=== PATIENT | male | born 1975 | race Caucasian/White ===

== ENCOUNTER 2018-07-07 10:36 | Emergency (ER) | payer OTHER ==
[~2018-07-07] VITALS: Ht 175.3 cm; Wt 67.1 kg
[~2018-07-07 10:36] MED LIST: ALEVE220 MG PO; AMOXICILLIN 50500 MG; AMOXICILLIN500 M1 PO; ANAPROX DS550 MG PO; AUGMENTIN 875-1 EACH PO; CLEOCIN HCL150 MG PO; CLEOCIN HCL300 MG PO; CLINDAMYCIN HC150 MG PO; CYMBALTA20 MG PO; FLEXERIL PO; HYDROCODON-ACE1 EAC7 PO; HYDROCODONE-AP1 EAC6 PO; IBUPROFEN 200200 M1; IBUPROFEN200 M2 PO; KEFLEX500 MG PO; LORTAB 7.5/5001 TA1 PO; MOBIC15 MG PO; MOBIC7.5 M1 PO; NAPROSYN500 MG PO; NOHOMEMEDICATIONS; NORCO 5-325 TA1 EACH PO; NORCO 7.5-3251 EACH PO; PENICILLIN VK500 M1 PO; PENICILLIN VK500 MG PO
[2018-07-07] MEDS ORDERED: MUPIROCIN1 GM NASAL (10:57)
[2018-07-07] MEDS ORDERED: POLYMYXIN B/TMP10 ML OPHTHALMIC (10:57)
[2018-07-07 11:08] VITALS: BP 127/86
== END 2018-07-07 11:10 | disposition home or self-care (01) ==
LOC: M.ERS 10:36
DX: J32.9 Chronic sinusitis, unspecified (principal); H10.32 Unspecified acute conjunctivitis, left eye; F17.200 Nicotine dependence, unspecified, uncomplicated; Z88.5 Allergy status to narcotic agent; Z88.6 Allergy status to analgesic agent; Z88.0 Allergy status to penicillin; Z88.1 Allergy status to other antibiotic agents

== ENCOUNTER 2019-02-22 05:08 | Emergency (ER) | payer OTHER ==
[~2019-02-22] VITALS: Ht 175.3 cm; Wt 63.5 kg
[~2019-02-22 05:08] MED LIST changes: +MUPIROCIN1 GM NASAL; +POLYMYXIN B/TMP10 ML OPHTHALMIC
[2019-02-22] MEDS ORDERED: IBUPROFEN 800800 MG PO (05:39)
[2019-02-22] MEDS ORDERED: BACTRIM DS TAB1 EACH PO (05:39)
[2019-02-22] MEDS ORDERED: HYDROCODON-ACE1 EAC7 PO (06:02)
[2019-02-22 06:18] VITALS: BP 131/88
== END 2019-02-22 06:18 | disposition home or self-care (01) ==
LOC: M.ERS 05:08
DX: S60.352A Superficial foreign body of left thumb, initial encounter (principal); L08.9 Local infection of the skin and subcutaneous tissue, unspecified; F17.210 Nicotine dependence, cigarettes, uncomplicated; Z88.0 Allergy status to penicillin; Z88.1 Allergy status to other antibiotic agents; Z88.6 Allergy status to analgesic agent; Z88.5 Allergy status to narcotic agent; X58.XXXA Exposure to other specified factors, initial encounter; Y93.89 Activity, other specified; Y92.89 Other specified places as the place of occurrence of the external cause; Y99.8 Other external cause status

== ENCOUNTER 2019-03-29 20:46 | Emergency (ER) | payer OTHER ==
[~2019-03-29] VITALS: Ht 175.3 cm; Wt 63.5 kg
[~2019-03-29 20:46] MED LIST changes: +BACTRIM DS TAB1 EACH PO; +IBUPROFEN 800800 MG PO
[2019-03-29] MEDS ORDERED: BACTRIM DS TAB1 EAC1 PO (22:00)
[2019-03-29] MEDS ORDERED: NORCO 5-325 TA1 EAC1 PO (22:00)
[2019-03-29] MEDS ORDERED: KEFLEX500 M1 PO (22:00)
[2019-03-29 22:35] VITALS: BP 123/81
== END 2019-03-29 22:35 | disposition home or self-care (01) ==
LOC: M.ERS 20:46
DX: L03.113 Cellulitis of right upper limb (principal); F17.210 Nicotine dependence, cigarettes, uncomplicated; Z88.0 Allergy status to penicillin; Z88.1 Allergy status to other antibiotic agents; Z88.5 Allergy status to narcotic agent

== ENCOUNTER 2020-09-25 10:10 | Emergency (ER) | payer OTHER ==
[~2020-09-25] VITALS: Ht 175.3 cm; Wt 61.2 kg
[~2020-09-25 10:10] MED LIST changes: +BACTRIM DS TAB1 EAC1 PO; +KEFLEX500 M1 PO; +NORCO 5-325 TA1 EAC1 PO
[2020-09-25] MEDS ORDERED: LIDOCAINE VISC100 ML SWISH&SPIT (10:41)
[2020-09-25] MEDS ORDERED: APAP W/CODEINE1 TA2 PO (10:41)
[2020-09-25] MEDS ORDERED: CEPHALEXIN500 MG PO (10:41)
[2020-09-25 10:51] VITALS: BP 151/97
== END 2020-09-25 10:51 | disposition home or self-care (01) ==
LOC: M.ERS 10:10
DX: K02.9 Dental caries, unspecified (principal); F17.210 Nicotine dependence, cigarettes, uncomplicated; Z88.1 Allergy status to other antibiotic agents; Z88.0 Allergy status to penicillin; Z88.6 Allergy status to analgesic agent